=== PATIENT | male | born 1965 | race Asian ===

== ENCOUNTER → 2020-09-14 13:25 | Outpatient (BNVA) | payer OTHER, SELFPAY | PROVIDERS: PCP Nurse Practitioner Family; Referring Provider Nurse Practitioner Family; Visit Provider Physician Assistant | DX: M65.332 Trigger finger, left middle finger (principal); M65.342 Trigger finger, left ring finger | CPT/HCPCS: 20550; 20600; 99213; J1020 ==

== ENCOUNTER 2021-04-13 15:02 | Outpatient (REF) | payer OTHER, SELFPAY ==
--- NOTE | ~2021-04-13 | XR_ITS ---
EXAMINATION: XR KNEE, RIGHT CLINICAL INFORMATION: Right knee pain COMPARISON: None TECHNIQUE: Four views of the right knee. FINDINGS: There is no evidence of acute fracture or dislocation of the right knee. There is prominent chondrocalcinosis. There is a right knee effusion. No significant joint space narrowing is present. There is minor spurring undersurface of the patella. XR/XR knee RT 4V IMPRESSION: No acute fracture or dislocation of the right knee. Prominent chondrocalcinosis with knee effusion. No significant joint space narrowing appreciated.
== END 2021-04-13 15:03 | disposition home or self-care (01) ==
LOC: HO.HMGCX 15:02
PROVIDERS: PCP Nurse Practitioner Family; Visit Provider Hospitalist
DX: M25.561 Pain in right knee (principal)
CPT/HCPCS: 73564

== ENCOUNTER 2023-11-04 09:24 | Outpatient (REF) | payer OTHER, SELFPAY ==
[2023-11-04 11:15] LABS: MANUAL DIFF FLAG NO
[2023-11-04 11:19] LABS: Appearance Urine Clear; Color Urine Yellow; Glucose Urine UA Negative (Negative); Leukocyte Esterase Urine Negative (Negative); Nitrite Urine Negative (Negative); PH 6.5 (5.0-9.0); Specific Gravity - Urine 1.015 (1.005-1.025); Urine Blood Negative (Negative); Urine Ketones Trace mg/dL (Negative); Urine Protein Negative (Neg-Trace)
[2023-11-04 12:03] LABS: Basophils Absolute Auto 0.1 X10*3/uL (0.0-0.2); Basophils Percent Auto 1.1 % (0-2); Eosinophils Absolute Auto 0.2 X10*3/uL (0.0-0.4); Hematocrit 39.6 % (42.0-52.0); Hemoglobin 13.7 g/dl (14.0-18.0); Imm Gran Abs Auto 0.01 X10*3/uL (0.00-0.03); Imm Gran Pct Auto 0.2 % (0.0-0.4); Lymphocytes Absolute Auto 2.1 X10*3/uL (1.2-4.9); Lymphocytes Percent Auto 34.1 % (20-40); Mean Corpuscular HGB Conc 34.6 g/dl (31.0-36.0); Mean Corpuscular Hemoglobin 29.4 pg (27.0-33.0); Mean Platelet Volume 9.8 fL (9.4-12.4); Monocytes Absolute Auto 0.4 X10*3/uL (0.1-1.2); Neutrophils Absolute Auto 3.4 x10*3/uL (2.0-8.3); Neutrophils Percent Auto 54.6 % (45-73); Platelet Count 185 X10*3/uL (160-400); Red Blood Count 4.66 X10*6/uL (4.60-5.80); Red Cell Distribution Width 12.3 % (11.0-16.0); White Blood Count 6.3 X10*3/uL (4.8-10.8)
[2023-11-04 12:08] LABS: Estimated Average Glucose 157 mg/dL; Hemoglobin A1c % 7.1 % (<6.0)
[2023-11-04 12:11] LABS: Alanine Aminotransferase 28 U/L (0-40); Albumin Level 4.5 g/dL (3.5-5.0); Alkaline Phosphatase 60 U/L (39-117); Anion Gap 17 (12-20); Aspartate Amino Transferase 29 U/L (5-37); Bilirubin Total 0.5 mg/dL (0.0-1.0); Blood Urea Nitrogen 14 mg/dL (9-16); Carbon Dioxide 30 mmol/L (22-29); Chloride 97 mmol/L (96-108); Cholesterol 196 mg/dL (<200); Estimated Glomerular Filt Rate > 60; Glucose Fasting 181 mg/dL (60-99); HDL Cholesterol 65 mg/dL (>40); LDL Cholesterol Calculated 100 mg/dL (<100); Potassium 3.9 mmol/L (3.3-5.1); Sodium 140 mmol/L (135-145); TSH reflex Free T4 3.97 uIU/mL (0.32-4.0); Total Protein 7.7 g/dL (6.5-8.0); Triglycerides 158 mg/dL (<150)
[2023-11-04 12:13] LABS: Prostate Specific Antigen 0.21 ng/mL (<0.05-4.0)
[2023-11-04 12:16] LABS: Creatinine Urine 152.35 mg/dL; Microalbum/Creatinine Ratio Ur 30.1 ug/mg cr (<30)
== END 2023-11-04 09:25 | disposition home or self-care (01) ==
LOC: HO.HMGCLDS 09:24
PROVIDERS: PCP Nurse Practitioner Family; Visit Provider Nurse Practitioner Family
DX: E11.9 Type 2 diabetes mellitus without complications (principal); Z12.5 Encounter for screening for malignant neoplasm of prostate
CPT/HCPCS: 36415; 80053; 80061; 81003; 82043; 82570; 83036; 84153; 84443; 85025

== ENCOUNTER 2023-11-07 07:53 | Outpatient (AMB) | payer OTHER, SELFPAY ==
--- NOTE | 2023-11-07 08:02 | A.OFFPC_ITS ---
Vital Signs 11/07/23 08:03 Height 6 ft Weight 231 lb BMI 31.3 BP 110/70 Blood Pressure Location Lt brachial Position Sitting Pulse 48 L Pulse Source Pulse Oximeter Pulse Oximetry (%) 98 Oxygen Delivery Method Room Air Intake Visit Reasons: 6 month follow up after labs are done Allergies penicillin V Allergy (Unknown, Verified 11/07/23 08:04) Unknown Sulfa (Sulfonamide Antibiotics) Allergy (Unknown, Verified 11/07/23 08:04) Unknown sulfamethoxazole [From Bactrim] Allergy (Unknown, Verified 11/07/23 08:04) HIVES trimethoprim [From Bactrim] Allergy (Unknown, Verified 11/07/23 08:04) HIVES flu shot Allergy (Unknown, Uncoded 11/07/23 08:04) he got 'very sick' flu like Sx Medication List - Last Reconciled 11/07/23 by EDEN Guallpa amlodipine 5 mg PO DAILY 90 days canagliflozin (Invokana) 300 mg PO QAM indomethacin 50 mg PO TID linagliptin (Tradjenta) 5 mg PO DAILY lisinopril 40 mg PO DAILY metformin 1,000 mg PO BID pravastatin 80 mg PO DAILY 90 days scopolamine base 1 patch transdermal Q3D PRN Tobacco use date assessed: 05/07/23 HPI 6 month follow up after labs are done HPI Details Pt is a diabetic, on an BART and a statin. Last A1C was 7.1, microalbumin is up to date. Denies polyuria, polydipsia, does report neuropathy. Pt denies any signs and symptoms of hypoglycemia and does know how to correct it. Pt reports that his blood sugar has been around 130s-140s after eating. Eye exam is up to date. Anemia noted on last labs, will order further labs including FIT testing. Pt denied any dizziness, visual blood in stool, blood in urine [facility] Medical History Anxiety Diabetes Surgical History History of surgical removal of pilonidal cyst History of hand surgery History of shoulder surgery Family History Father No problems noted. Mother No problems noted. Social History Housing: House Alcohol intake: never Patient Tobacco Use Status: Never used Tobacco e-Cigarette/Vaping Use: Never Used Second Hand Smoke Exposure: No service: No Current occupational status: unemployed Cognitive needs: No Hearing needs: No Vision needs: No Questionnaire Thrive Questionnaire Date Thrive assessed: 05/07/23 PUJA-7 AMB Questionnaire PUJA-7 Date PUJA - 7 assessed: 05/07/23 Source: Developed by Drs. Bijan Castro, Shikha Cabrera, Homero Mcnair and colleagues, with an educational ty from [employer]. Review of Systems Const Reports as per HPI Physical exam (Primary Care) Vital Signs: Last Vital Signs Pulse 48 L 11/07/23 08:03 BP 110/70 11/07/23 08:03 Pulse Ox 98 11/07/23 08:03 Oxygen Delivery Method Room Air 11/07/23 08:03 BMI result Body Mass Index 31.3 Tobacco/Smoking Status: Tobacco use Status Tobacco use date assessed 05/07/23 11/07/23 08:03 Patient Tobacco Use Status Never used Tobacco 11/07/23 08:03 e-Cigarette/Vaping Use Never Used 11/07/23 08:03 Thrive Assessment: Date of Thrive Assessment Date Thrive assessed 05/07/23 11/07/23 08:03 Const General: cooperative Nutritional Appearance: obese Orientation/consciousness: patient oriented x3 Neuro General: patient oriented x3 Extrem Other: bilat feet: + sensation with use of monofilament, hammertoes noted bilat, bunion formation to right foot Psych Appearance: grossly normal Mental Status: mental status grossly normal Speech and movement: Normal speech and movement present Affect: normal affect Attitude: cooperative Thought process: Normal thought process present Thought content: Normal thought content present Insight: Good insight present (Psych) Judgement: Good judgement present (Psych) Assessment and Plan Assessment & Plan (1) Anemia: Code(s): D64.9 - Anemia, unspecified Plan: Labs ordered (2) Carpal tunnel syndrome: Code(s): G56.00 - Carpal tunnel syndrome, unspecified upper limb (3) Diabetes: Code(s): E11.9 - Type 2 diabetes mellitus without complications Plan: pt was off his meds for a short time, meds resent, pt will continue to watch his diet Plan The patient agreed to the use of a medical insurance verifier for this encounter. Scribed for EDEN Noguera by Katharina Shore medical insurance verifier, on 11/07/2023 at 08:20 EST. Orders: Orders IRON PROFILE Today D64.9 - Anemia, unspecified FITS Today D64.9 - Anemia, unspecified Complete Blood Count Auto Diff Today D64.9 - Anemia, unspecified Ferritin Today D64.9 - Anemia, unspecified Referrals Orthopedics Referral G56.00 - Carpal tunnel syndrome, unspecified upper limb Medications: Refilled canagliflozin (Invokana) 300 mg PO QAM 90 tabs 1RF linagliptin (Tradjenta) 5 mg PO DAILY 90 tabs 1RF Coding Level of Care Code Est Pt Level 3 (68635) Diagnoses Anemia D64.9 Carpal tunnel syndrome G56.00 Diabetes E11.9
[2023-11-07 08:03] VITALS: BP 110/70; PULSE 48; O2SAT 98; BMI 31.3
== END 2023-11-07 08:37 | disposition home or self-care (01) ==
PROVIDERS: PCP Nurse Practitioner Family; Visit Provider Nurse Practitioner Family
DX: D64.9 Anemia, unspecified (principal); G56.00 Carpal tunnel syndrome, unspecified upper limb; E11.9 Type 2 diabetes mellitus without complications
CPT/HCPCS: 99213

== ENCOUNTER 2024-01-06 13:23 | Outpatient (AMB) | payer OTHER, SELFPAY ==
[2024-01-06 13:38] VITALS: BMI 31.3
--- NOTE | 2024-01-06 13:38 | A.OFFVIS_ITS ---
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 patient states he is having numbness and tingling that is constant. EMG done. Patient last seen with Tiny jones who injected left ring and middle trigger finger in 09/2020 with no improvement. States his finger continues to trigger. Patient would like to discuss surgical intervention for CTR and trigger release. 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 He was last seen in the office on 09/2020 where he was given a left ring and middle finger injection on without benefits. He states he has constant numbness and tingling in his left hand which is aggravated at night. He wears a night brace for his hand without significant relief. He has a history of type 2 diabetes. His HbA1c is 7.1 currently. [facility] Medical History Anxiety Diabetes Surgical History History of surgical removal of pilonidal cyst History of hand surgery History of shoulder surgery Family History Father No problems noted. Mother No problems noted. Social History Housing: House Alcohol intake: never Patient Tobacco Use Status: Never used Tobacco e-Cigarette/Vaping Use: Never Used Second Hand Smoke Exposure: No service: No Current occupational status: unemployed Cognitive needs: No Hearing needs: No Vision needs: No Review of Systems Const All systems reviewed & are unremarkable except as noted in HPI and below Physical Exam Vital Signs: BMI result Body Mass Index 31.3 Const General: cooperative, healthy appearing, comfortable, no acute distress, well developed and alert Orientation/consciousness: patient oriented x3 HEENT Head: Yes normal to inspection, Yes normocephalic and Yes atraumatic Eyes General: appearance normal, both eyes and all related structures Resp Effort & Inspection: normal respiratory effort and able to speak in complete sentences Cardio Rate: regular rate Peripheral pulses: Peripheral pulses 2+ throughout GI Palpation (GI): Soft to palpation Skin Lesions: no lesions Rashes: no rashes Neuro General: patient oriented x3 Extrem Other: Left wrist: Normal to inspection. Tenderness over the carpal canal. Numbness and tingling over the median nerve distribution of the right hand. Able to make a full fist and fully extend all fingers. Positive Tinel's. Results Reviewed Results Reviewed: EMG 2020: Moderate to severe bilat CTS Assessment & Plan Assessment & Plan (1) Carpal tunnel syndrome on left: Code(s): G56.02 - Carpal tunnel syndrome, left upper limb Plan We discussed options which include conservative vs operative treatment. Since the patient has been symptomatic for several months and it is impacting their daily life, the decision was made to undergo right carpal tunnel release. We discussed risk, benefits and alternatives. Risk including but not limited to infection, weakness, stiffness, ongoing numbness or tingling. I also explained t he risk of diabetes with wound close and ongoing numbness. The patient does understand all this and would like to proceed with left carpal tunnel release with Dr. Mcgill. They will be booked accordingly. Patient Instructions: Scribed for Ibrahima Jonas PA-C, by Sameer Riggs medical education specialist, on 01/06/2024 at 1:30 PM EST. Ibrahima Rice PA-C, have personally reviewed and agree with the information entered by the scribe. Coding Level of Care Code New Pt Level 4 (44417) Diagnoses Carpal tunnel syndrome on left G56.02
== END 2024-01-06 13:59 | disposition home or self-care (01) ==
PROVIDERS: PCP Nurse Practitioner Family; Visit Provider Physician Assistant
DX: G56.02 Carpal tunnel syndrome, left upper limb (principal)
CPT/HCPCS: 99204

== ENCOUNTER → 2024-01-06 13:23 | Outpatient (BNVA) | payer OTHER, SELFPAY | PROVIDERS: PCP Nurse Practitioner Family; Visit Provider Physician Assistant | DX: G56.02 Carpal tunnel syndrome, left upper limb (principal) | CPT/HCPCS: 99202 ==

== ENCOUNTER 2024-03-23 11:05 | Day surgery (SDC) | payer OTHER, SELFPAY ==
[2024-03-23 11:35] VITALS: BP 162/100; PULSE 61; RESP 20; TEMP 36.5; O2SAT 95; BMI 32.8
--- NOTE | 2024-03-23 12:09 | MHC.SHP ---
Pre-Procedural Eval Section A - 24 Hr Update-Section A only Date of Service: 03/23/24 The patient is an INPATIENT: No Changes since office visit: No Cold of Flu in the past 2 weeks, No New Medical Problems, No Changes in Medication and No Patient answered all questions The patient has been examined within 24 hours of the surgical procedure. The History & Physical has been completed within 30 days and I have reviewed it.: Yes Section B - Complete if H&P > 30 days Chief Complaint: Carpal tunnel syndrome, left upper limb Allergies: Allergies Allergy/AdvReac Type Severity Reaction Status Date / Time penicillin V Allergy Unknown Unknown Verified 01/06/24 13:44 Sulfa (Sulfonamide Allergy Unknown Unknown Verified 01/06/24 13:44 Antibiotics) sulfamethoxazole Allergy Unknown HIVES Verified 01/06/24 13:44 [From Bactrim] trimethoprim [From Bactrim] Allergy Unknown HIVES Verified 01/06/24 13:44 flu shot Allergy Unknown he got Uncoded 01/06/24 13:44 'very sick' flu like Sx Exam Exam Comment: Left carpal tunnel syndrome Plan Diagnosis/Plan: Unchanged I have reviewed the history and physical and performed a pertinent physical examination on my patient. No changes have occurred unless specified. Time Spent With Patient Time: Total time managing care of this patient today ____ minutes.
--- NOTE | 2024-03-23 13:48 | W.PM.OPN ---
Operative Note Operative Note Date of Service: 03/23/24 Narrative: Preop diagnosis: 1. Left Carpal tunnel syndrome Postop diagnosis: same Procedure: 1. Left Carpal tunnel release Surgeon: Janice Mcgill MD Anesthesia: local block using 1% lidocaine with epinephrine Findings: Thickened transverse carpal ligament. EBL: Less than 5 mL Specimens: None Complications: None Disposition: Brought to recovery room in stable condition Plan: Follow-up for 10-14 days for wound check and suture removal Indications: The patient is 58 years old, with left carpal tunnel syndrome that has been unresponsive to nonoperative management. The risks and benefits of operative treatment including but not limited to risk of damage to blood vessels, nerves, tendons, infection, persistent pain, persistent symptoms, or possible need for additional surgery were discussed with the patient and the patient wishes to proceed with surgery. Procedure: Once consent was obtained a local block was performed using a combination of 1% lidocaine with epinephrine. The patient was then brought back to the operating suite and placed on the operative table in supine position. The left upper extremity was prepped and draped in a standard surgical fashion. Once assured that we had a good block, a 2.0 cm longitudinal incision was made centered over the carpal tunnel. The incision was made through the skin to the subcutaneous tissues using a #15 blade. Dissection was made down to the level of the transverse carpal ligament with care being taken to protect the palmar cutaneous nerve. Once the transverse carpal ligament was clearly visualized, a longitudinal incision was made in the transverse carpal ligament 1st using a #15 blade, then using tenotomy scissors under direct visualization. Care was taken to look for and protect the motor branch of the median nerve when seen in this area. Once satisfied with our carpal tunnel release the wound was copiously irrigated with normal saline and hemostasis was obtained with a brief period of local pressure. The skin edges were reapproximated with some 5.0 nylon suture material and a sterile dressing was applied. The patient appears to have tolerated the procedure well and with no complications. All digits were well vascularized at the conclusion of the case.
--- NOTE | 2024-03-23 14:49 | HO.INF ---
POST OP VITAL SIGNS 186/89, 79, 18, 98% RA.
== END 2024-03-23 14:41 | disposition home or self-care (01) ==
PROVIDERS: PCP Nurse Practitioner Family; Visit Provider Orthopaedic Surgery
PROC: (CPT 64721; principal; 2024-03-23 14:10)
DX: G56.02 Carpal tunnel syndrome, left upper limb (principal); R20.0 Anesthesia of skin; R20.2 Paresthesia of skin; F41.9 Anxiety disorder, unspecified; E11.9 Type 2 diabetes mellitus without complications; Z88.0 Allergy status to penicillin; Z88.2 Allergy status to sulfonamides; Z98.890 Other specified postprocedural states; Z56.0 Unemployment, unspecified
CPT/HCPCS: 64721; J0171

== ENCOUNTER → 2024-03-23 11:05 | Outpatient (BNV) | payer OTHER, SELFPAY | PROVIDERS: PCP Nurse Practitioner Family; Visit Provider Orthopaedic Surgery | DX: G56.02 Carpal tunnel syndrome, left upper limb (principal) | CPT/HCPCS: 64721 ==

== ENCOUNTER 2024-04-07 09:43 | Outpatient (AMB) | payer OTHER, SELFPAY ==
[2024-04-07 09:46] VITALS: BMI 32.8
--- NOTE | 2024-04-07 09:46 | A.OFFVIS_ITS ---
Vital Signs 04/07/24 09:46 Height 5 ft 9 in Weight 222 lb BMI 32.8 Intake Visit Reasons: PO LT CTR 03/23/24 AR Intake Note: Tomasz 58 yr old male presents today for his PO visit for his left CTR 03/23/[address] Mcgill. States his CTS have improved and is doing well. Sutures removed and steri strips applied. Allergies penicillin V Allergy (Unknown, Verified 04/07/24 09:54) Unknown Sulfa (Sulfonamide Antibiotics) Allergy (Unknown, Verified 04/07/24 09:54) Unknown sulfamethoxazole [From Bactrim] Allergy (Unknown, Verified 04/07/24 09:54) HIVES trimethoprim [From Bactrim] Allergy (Unknown, Verified 04/07/24 09:54) HIVES flu shot Allergy (Unknown, Uncoded 04/07/24 09:54) he got 'very sick' flu like Sx HPI HPI PO LT CTR 03/23/24 AR: Details: Tomasz is a 58 year old left hand dominant Diabetic man who presents S/P left carpal tunnel release, DOS: 03/23/24. He says he is doing well, he continues to have numbness in the median nerve distribution but says he had good resolution of his nighttime symptoms. He says he has numbness in the right median nerve distribution. Symptoms intermittent, but daily, worse at night. He is a Diabetic, his most recent HgA1c was 7.1%. [facility] Medical History Anxiety Diabetes Surgical History History of surgical removal of pilonidal cyst History of hand surgery History of shoulder surgery Family History Father No problems noted. Mother No problems noted. Social History Housing: House Alcohol intake: never Comment: counts correct Patient Tobacco Use Status: Never used Tobacco e-Cigarette/Vaping Use: Never Used Second Hand Smoke Exposure: No service: No Current occupational status: unemployed Cognitive needs: No Hearing needs: No Vision needs: No Review of Systems Const All systems reviewed & are unremarkable except as noted in HPI and below Physical Exam Vital Signs: BMI result Body Mass Index 32.8 Const General: no acute distress and alert Orientation/consciousness: patient oriented x3 Neuro General: patient oriented x3 Extrem Other: The patient was alert oriented and in no acute distress The incision is healing well with no erythema drainage or evidence of infection. Sutures removed and Steri-Strips applied He can make a fist and extend all his digits He continues to have dense numbness in the left median nerve distribution. He does report significant improvement in nighttime symptoms. Cap refill is brisk In regards to the right hand: Normal sensation to the tips of all digits today in clinic No thenar or intrinsic wasting Good APB muscle belly firing & good finger cross He denies having trouble with numbness and tingling in the small fingers. 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 Dr. Garcia 07/20/20 Psych Appearance: grossly normal Affect: normal affect Attitude: cooperative Assessment & Plan Assessment & Plan (1) Carpal tunnel syndrome on left: Code(s): G56.02 - Carpal tunnel syndrome, left upper limb Category: Medical (2) Carpal tunnel syndrome of right wrist: Code(s): G56.01 - Carpal tunnel syndrome, right upper limb Category: Medical (3) Diabetes: Code(s): E11.9 - Type 2 diabetes mellitus without complications Category: Medical (4) Cubital tunnel syndrome on right: Code(s): G56.21 - Lesion of ulnar nerve, right upper limb Category: Medical (5) Cubital tunnel syndrome on left: Code(s): G56.22 - Lesion of ulnar nerve, left upper limb Category: Medical Plan Assessment & Plan: 1. Left carpal tunnel syndrome, S/P release DOS: 03/23/24 Pre-operatively with dense numbness Still with dense numbness but good resolution of his nighttime symptoms The patient appears to be doing well post-operatively I educated him about the post-operative course I explained that it may take up to 9 months post-operatively for his sensation to improve I discussed activity modifications, he is to lift nothing heavier than a cellphone for the next two weeks He will perform gentle ROM exercises at home He should avoid any underwater activities for the next 5 days He should gently massage about the incision site to reduce the risk of hypersensitivity 2. Right carpal tunnel syndrome, moderate-severe Symptoms intermittent, but daily, worse at night I educated her about this condition I discussed operative and non-operative treatment options The patient would like to proceed with surgery The risks and benefits of operative treatment were discussed with the patient and the patient wishes to proceed with surgery. These risks include, but are not limited to risk of damage to blood vessels, nerves, tendons, infection, recurrence, incomplete relief of preoperative symptoms, persistent pain, possible need for further surgery and the risks associated with regional blocks and anesthesia. The plan is to take the patient to the operating room sometime in the next few weeks for the following procedures: 1. Right carpal tunnel release, under local All of the preoperative paperwork including the consent was reviewed today. All the patient's questions were answered. The patient understands that they will be contacted by our operations scheduler soon to schedule this procedure He denies blood thinners, asthma, heart, lung, kidney issues He is a Diabetic, his most recent HgA1c was 7.1% 3. Bilateral cubital tunnel syndrome No complaints today We will manage this conservatively Scribed for Janice Mcgill MD by Isidro Contreras, medical assisting program director, on 04/07/24 at 9:50 AM, EST. Coding Level of Care Code Est Pt Level 4 (34141) Diagnoses Carpal tunnel syndrome on left G56.02 Carpal tunnel syndrome of right wrist G56.01 Diabetes E11.9 Cubital tunnel syndrome on right G56.21 Cubital tunnel syndrome on left G56.22
== END 2024-04-07 09:54 | disposition home or self-care (01) ==
PROVIDERS: PCP Nurse Practitioner Family; Visit Provider Orthopaedic Surgery
DX: G56.03 Carpal tunnel syndrome, bilateral upper limbs (principal); E11.9 Type 2 diabetes mellitus without complications; G56.23 Lesion of ulnar nerve, bilateral upper limbs
CPT/HCPCS: 99214

== ENCOUNTER → 2024-04-07 09:43 | Outpatient (BNVA) | payer OTHER, SELFPAY | PROVIDERS: PCP Nurse Practitioner Family; Visit Provider Orthopaedic Surgery | DX: Z48.811 Encounter for surgical aftercare following surgery on the nervous system (principal); G56.01 Carpal tunnel syndrome, right upper limb; G56.23 Lesion of ulnar nerve, bilateral upper limbs; E11.9 Type 2 diabetes mellitus without complications | CPT/HCPCS: 99212 ==

== ENCOUNTER 2024-05-18 09:52 | Outpatient (AMB) | payer OTHER, SELFPAY ==
--- NOTE | 2024-05-18 10:03 | MHC.PC.OV ---
Vital Signs 05/18/24 10:05 05/18/24 11:01 Height 5 ft 9 in Weight 213 lb BMI 31.5 BP 140/90 H 130/84 Blood Pressure Location Lt brachial Position Sitting Pulse 64 Pulse Source Pulse Oximeter Pulse Oximetry (%) 98 Oxygen Delivery Method Room Air Intake Visit Reasons: Diabetes f/u Intake Note: Patient here for diabetes f/u. Allergies penicillin V Allergy (Unknown, Verified 05/18/24 10:05) Unknown Sulfa (Sulfonamide Antibiotics) Allergy (Unknown, Verified 05/18/24 10:05) Unknown sulfamethoxazole [From Bactrim] Allergy (Unknown, Verified 05/18/24 10:05) HIVES trimethoprim [From Bactrim] Allergy (Unknown, Verified 05/18/24 10:05) HIVES flu shot Allergy (Unknown, Uncoded 05/18/24 10:05) he got 'very sick' flu like Sx Tobacco use date assessed: 05/18/24 Dental Screening Dental Screen Date: 05/18/24 Did you have a dental visit in the last 12 months?: Yes Did you have a dental problem in the last 6 months where you did not have access to dental care?: No Was dental information given to patient?: Patient has dentist HPI Diabetes f/u HPI Details Pt is a diabetic, on an BART and a statin. A1C in office today is 6.9. Microalbumin is up to date. Denies polyuria and polydipsia, does report neuropathy. Pt denies any signs and symptoms of hypoglycemia and does know how to correct it. Will start gabapentin for neuropathy. Currently, he is working on is diet. Pt has an eye doctor. NOTE: left carpel tunnel around March (2023), still ongoing neuropathy to left hand. Refuses pneumonia vaccines. [facility] Medical History Anxiety Diabetes Surgical History History of carpal tunnel surgery of left wrist History of surgical removal of pilonidal cyst History of hand surgery History of shoulder surgery Family History Father No problems noted. Mother No problems noted. Social History Housing: House Alcohol intake: never Comment: counts correct Patient Tobacco Use Status: Never used Tobacco e-Cigarette/Vaping Use: Never Used Second Hand Smoke Exposure: No service: No Current occupational status: unemployed Cognitive needs: No Hearing needs: No Vision needs: No Questionnaire PHQ-9 Over the last 2 weeks, how often have you been bothered by any of the following problems? 1. Little interest or pleasure in doing things: not at all 2. Feeling down, depressed, or hopeless: not at all 3. Trouble falling or staying asleep, or sleeping too much: not at all 4. Feeling tired or having little energy: not at all 5. Poor appetite or overeating: not at all 6. Feeling bad about yourself - or that you are a failure or have let yourself or your family down: not at all 7. Trouble concentrating on things, such as reading the newspaper or watching television: not at all 8. Moving or speaking so slowly that other people could have noticed. Or the opposite - being so fidgety or restless that you have been moving around a lot more than usual: not at all 9. Thoughts that you would be better off or of hurting yourself in some way: not at all Total score: 0 Depression Screening Interpretation: Negative Depression Screening Done: Yes 69674 - PHQ-9 Billing: Yes Source: Developed by Drs. Bijan Castro, Shikha Cabrera, Homero Mcnair and colleagues, with an educational ty from [employer]. Thrive Questionnaire Date Thrive assessed: 05/18/24 What is your living situation today?: I choose not to answer this question Within the past 12 months, did the food you bought not last and you didn't have the money to get more?: I choose not to answer this question Within the past 12 months, did you worry whether your food would run out before you got money to buy more?: I choose not to answer this question Do you have trouble paying for medicines?: I choose not to answer this question Do you have trouble getting transportation to medical appointments?: I choose not to answer this question Do you have trouble paying your heating and electricity bill?: I choose not to answer this question Do you have trouble taking care of your child, family member or friend?: I choose not to answer this question Do you have trouble with day-to-day activities such as bathing, preparing meals, shopping, managing finances, etc.?: I choose not to answer this question Are you currently unemployed and looking for a job?: I choose not to answer this question Are you interested in more education?: I choose not to answer this question Currently or been in a relationship where the following occur: I choose not to answer this question THRIVE Score: 0 AUDIT C Alcohol Use Questionnaire (AUDIT-C) 1. How often do you have a drink containing alcohol?: 2-4 times a month 2. How many drinks containing alcohol do you have on a typical day when you are drinking?: 1 or 2 3. How often do you have six or more drinks on one occasion?: Never Total Score: 2 Score Reviewed/Action Taken: No PUJA-7 AMB Questionnaire PUJA-7 Date PUJA - 7 assessed: 05/18/24 Source: Developed by Drs. Bijan Castro, Shikha Cabrera, Homero Mcnair and colleagues, with an educational ty from [employer]. PUJA-7 Assessment Billing PUJA-7 Assessment Tool: pt declined-do not bill Review of Systems Const Reports as per HPI Physical exam (Primary Care) Vital Signs: Last Vital Signs Pulse 64 05/18/24 10:05 BP 130/84 05/18/24 11:01 Pulse Ox 98 05/18/24 10:05 Oxygen Delivery Method Room Air 05/18/24 10:05 BMI result Body Mass Index 31.5 Tobacco/Smoking Status: Tobacco use Status Tobacco use date assessed 05/18/24 05/18/24 10:09 Patient Tobacco Use Status Never used Tobacco 05/18/24 10:04 e-Cigarette/Vaping Use Never Used 05/18/24 10:04 PHQ-9: PHQ-9 Score PHQ-9: Total score 0 05/18/24 10:35 Depression Screening Interpretation: Negative Thrive Assessment: Date of Thrive Assessment Date Thrive assessed 05/18/24 05/18/24 10:13 Currently or been in a relationship where the following occur: I choose not to answer this question Const General: cooperative Orientation/consciousness: patient oriented x3 Resp Effort & Inspection: normal respiratory effort Auscultation: clear to auscultation bilaterally Cardio Rate: regular rate Rhythm: regular rhythm Heart sounds: S1 normal heart sound present and S2 normal heart sound present Neuro General: patient oriented x3 Extrem Other: bilat feet: lack of sensation to toes 2-5, hammertoes noted, otherwise positive sensation, bunions noted bilat Psych Appearance: grossly normal Mental Status: mental status grossly normal Speech and movement: Normal speech and movement present Affect: normal affect Attitude: cooperative Thought process: Normal thought process present Thought content: Normal thought content present Insight: Good insight present (Psych) Judgement: Good judgement present (Psych) Results AMB Hemoglobin A1c AMB Hemoglobin A1c 6.9 % Last Edit by ANAMARIA Mulligan on 05/18/24 10:24 Results Reviewed Results Reviewed: Laboratory Last Values Hgb A1c (Clinic) 6.9 % (4.0-6.0) H 05/18/24 10:22 Assessment and Plan Assessment & Plan (1) Diabetes: Code(s): E11.9 - Type 2 diabetes mellitus without complications Plan: Labs ordered (2) Neuropathy: Code(s): G62.9 - Polyneuropathy, unspecified Plan: starting low dose gabapentin at night, pt can go up to 200mg daily. Plan The patient agreed to the use of a ophthalmic medical technologist for this encounter. Scribed for EDEN Noguera by Katharina Shore ophthalmic medical technologist, on 05/18/2024 at 10:30 EST. Orders: Orders AMB Hemoglobin A1c Today Z13.9 - Encounter for screening, unspecified Complete Blood Count Auto Diff Today E11.9 - Type 2 diabetes mellitus without complications Comprehensive [place]. Panel Fast Today E11.9 - Type 2 diabetes mellitus without complications TSH reflex Free T4 Today E11.9 - Type 2 diabetes mellitus without complications UA CC w/rflx Micro + Cult Today E11.9 - Type 2 diabetes mellitus without complications Lipid Panel Today E11.9 - Type 2 diabetes mellitus without complications Medications: New gabapentin 100 mg PO BEDTIME 30 caps 2RF 30 days Coding Level of Care Code Est Pt Level 3 (40548) Diagnoses Diabetes E11.9 Neuropathy G62.9
[2024-05-18 10:05] VITALS: BP 140/90; PULSE 64; O2SAT 98; BMI 31.5
[2024-05-18 11:01] VITALS: BP 130/84
== END 2024-05-18 10:57 | disposition home or self-care (01) ==
PROVIDERS: PCP Nurse Practitioner Family; Visit Provider Nurse Practitioner Family
DX: E11.42 Type 2 diabetes mellitus with diabetic polyneuropathy (principal); G62.9 Polyneuropathy, unspecified
CPT/HCPCS: 83036; 99213

== ENCOUNTER 2024-11-12 08:11 | Outpatient (AMB) | payer OTHER, SELFPAY ==
[2024-11-12 08:14] VITALS: BP 142/80; PULSE 66; O2SAT 97; BMI 34.8
--- NOTE | 2024-11-12 08:14 | MHC.PC.OV ---
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: No Accompanied by: Self / Same As Patient Allergies penicillin V Allergy (Unknown, Verified 11/12/24 08:16) Unknown Sulfa (Sulfonamide Antibiotics) Allergy (Unknown, Verified 11/12/24 08:16) Unknown sulfamethoxazole [From Bactrim] Allergy (Unknown, Verified 11/12/24 08:16) HIVES trimethoprim [From Bactrim] Allergy (Unknown, Verified 11/12/24 08:16) HIVES flu shot Allergy (Unknown, Uncoded 05/18/24 10:05) he got 'very sick' flu like Sx Medication List - Last Reconciled 11/12/24 by Shaka Alvarez [facility]- amlodipine 5 mg PO DAILY 90 days canagliflozin (Invokana) 300 mg PO QAM gabapentin 200 mg (2 x 100 mg) PO BEDTIME 30 days indomethacin 50 mg PO TID lisinopril 40 mg PO DAILY metformin 1,000 mg PO BID pravastatin 80 mg PO DAILY 90 days scopolamine base 1 patch transdermal Q3D PRN tirzepatide (Mounjaro) 2.5 mg (0.5 mL) subcut QWEEK Tobacco use date assessed: 05/18/24 Dental Screening Dental Screen Date: 05/18/24 HPI blood sugar f/u HPI Details Chief Complaint Peripheral neuropathy in feet History of Present Illness The patient is a 58-year-old male presenting with management needs for diabetes and associated peripheral neuropathy. He reports experiencing significant numbness and tingling in his feet, which he describes as big time, indicating pronounced severity. The neuropathy has been progressive and bothersome. He also reports undergoing surgery for carpal tunnel syndrome, which was advanced, and post-operative recovery did not restore sensation as hoped. Additionally, the patient mentioned a heart murmur previously diagnosed, for which an echocardiogram has not been conducted recently. He reports bunions affecting his right foot and has symptoms consistent with cubital tunnel syndrome, describing numbness and tingling in the elbows particularly when leaning. His diabetes is currently managed with medications including Invokana and metformin, and he expresses interest in initiating Mounjaro for further management. A1c is quite elevated at 8.9, i will bring it down . Social History Health Maintenance - Eye exam is up to date. - Declined pneumonia and flu vaccines. - Discussed the importance of hydration and maintaining blood glucose stability. -denies any Hx of pancreatitis Review of Systems - General: Reports feeling shaky when not eating due to low blood sugar. - Neurologic: Reports numbness and tingling in feet and fingers. - Musculoskeletal: Denies smoking but uses marijuana occasionally. -no CP, SOB, N/V, fevers/chills Physical Exam General: Cooperative, healthy appearing, comfortable, no acute distress and well developed Orientation: Patient oriented x3 Limitations: No limitations Head: Normal to inspection Ears: Hearing grossly normal bilaterally Nose: Normal external nose present Face and sinus: Normal facial exam Eyes: Appearance normal, both eyes and all related structures Neck: Normal visual inspection and Yes full ROM Respiratory: Normal respiratory effort and able to speak in complete sentences. Clear to auscultation bilaterally Cardiovascular: Regular rate and rhythm. Normal S1 and S2. Murmur noted GI: Normal to inspection. Soft to palpation and nontender Skin: No rashes or lesions noted Neuro: Patient oriented x3. Numbness and tingling in feet, especially right foot. Carpal and cubital tunnel syndrome noted Extremities: Normal to inspection. Right bunion noted, missing skin on toes due to rubbing. Full sensation in left foot, reduced sensation in right foot toes with use of monofilament Results Plan - Diabetes Mellitus Type 2: Initiated a prescription for Mounjaro, pending insurance coverage. - Peripheral Neuropathy: Continue current diabetes management to address neuropathy symptoms. - Heart Murmur: Schedule for an echocardiogram at [facility]. - Carpal and Cubital Tunnel Syndrome: Advise on techniques to alleviate symptoms, such as wrapping a towel around elbows during sleep. - Bunion on Right Foot: Monitor for worsening symptoms or any ensuing complications. Patient was informed and verbally consented to the use of an ambient scribe for clinic note documentation during this visit. Discussion Notes Upon discussion, I recommended initiating Mounjaro for diabetes management, emphasizing the potential initial gastrointestinal upset as the body adjusts to delayed gastric emptying. Given the previous carpal tunnel surgery, I clarified the possibility of cubital tunnel syndrome as a differential and advised strategies to mitigate symptoms, particularly nocturnal positioning of the arms. I reassured the patient regarding the heart murmur and planned an echocardiogram to monitor the condition. The patient was in agreement with the suggested treatment plan and understood the need for follow-up in four months to assess the effectiveness and tolerance of introduced therapies. Patient Instructions - Start Mounjaro as directed and monitor for gastrointestinal symptoms. - Return for a follow-up appointment in four months. - Maintain good hydration and stable blood glucose levels to manage neuropathy. - Schedule an echocardiogram at [facility]. - Use supportive measures for cubital tunnel syndrome, such as a towel wrap at night. - Monitor any changes in symptoms related to bunion or peripheral neuropathy. [facility], [facility] Medical History Anxiety Diabetes Surgical History History of carpal tunnel surgery of left wrist History of surgical removal of pilonidal cyst History of hand surgery History of shoulder surgery Family History Father No problems noted. Mother No problems noted. Social History Housing: House Alcohol intake: never Comment: counts correct Patient Tobacco Use Status: Never used Tobacco e-Cigarette/Vaping Use: Never Used Second Hand Smoke Exposure: No service: No Current occupational status: unemployed Cognitive needs: No Hearing needs: No Vision needs: No Questionnaire Thrive Questionnaire Date Thrive assessed: 05/18/24 PUJA-7 AMB Questionnaire PUJA-7 Date PUJA - 7 assessed: 05/18/24 Source: Developed by Drs. Bijan Castro, Shikha Cabrera, Homero Mcnair and colleagues, with an educational ty from [employer]. Physical exam (Primary Care) Vital Signs: Last Vital Signs Pulse 66 11/12/24 08:14 BP 136/76 11/12/24 09:08 Pulse Ox 97 11/12/24 08:14 BMI result Body Mass Index 34.8 Tobacco/Smoking Status: Tobacco use Status Tobacco use date assessed 05/18/24 11/12/24 08:16 Patient Tobacco Use Status Never used Tobacco 11/12/24 08:16 e-Cigarette/Vaping Use Never Used 11/12/24 08:16 Thrive Assessment: Date of Thrive Assessment Date Thrive assessed 05/18/24 11/12/24 08:16 Results AMB Hemoglobin A1c AMB Hemoglobin A1c 8.9 % Last Edit by John Antoine CMA on 11/12/24 08:47 Results Reviewed Results Reviewed: Laboratory Last Values Hgb A1c (Clinic) 8.9 % (4.0-6.0) H 11/12/24 08:47 Coding Level of Care Code Est Pt Level 3 (14547) Diagnoses Diabetes E11.9 Screening PSA (prostate specific antigen) Z12.5 Systolic murmur R01.1 Assessment & Plan Assessment & Plan (1) Diabetes: Code(s): E11.9 - Type 2 diabetes mellitus without complications Category: Medical (2) Screening PSA (prostate specific antigen): Code(s): Z12.5 - Encounter for screening for malignant neoplasm of prostate Category: Medical (3) Systolic murmur: Code(s): R01.1 - Cardiac murmur, unspecified Category: Medical Plan . Orders: Orders Comprehensive [place]. Panel Fast Today E11.9 - Type 2 diabetes mellitus without complications Microalbumin, Random (w Creat) Today E11.9 - Type 2 diabetes mellitus without complications Prostate Specific Antigen Scr Today Z12.5 - Encounter for screening for malignant neoplasm of prostate CA echo transthoracic complete Today R01.1 - Cardiac murmur, unspecified AMB Hemoglobin A1c Today Z13.9 - Encounter for screening, unspecified Complete Blood Count Auto Diff Today E11.9 - Type 2 diabetes mellitus without complications TSH reflex Free T4 Today E11.9 - Type 2 diabetes mellitus without complications UA CC w/rflx Micro + Cult Today E11.9 - Type 2 diabetes mellitus without complications Lipid Panel Today E11.9 - Type 2 diabetes mellitus without complications Medications: New tirzepatide (Mounjaro) for 4 weeks 2.5 mg (0.5 mL) subcut QWEEK 2 mL 0RF
[2024-11-12 09:08] VITALS: BP 136/76
== END 2024-11-12 09:18 | disposition home or self-care (01) ==
PROVIDERS: PCP Nurse Practitioner Family; Visit Provider Nurse Practitioner Family
DX: E11.9 Type 2 diabetes mellitus without complications (principal); Z12.5 Encounter for screening for malignant neoplasm of prostate; R01.1 Cardiac murmur, unspecified; Z13.9 Encounter for screening, unspecified

== ENCOUNTER → 2024-11-12 08:11 | Outpatient (BNVA) | payer OTHER, SELFPAY | PROVIDERS: PCP Nurse Practitioner Family; Visit Provider Nurse Practitioner Family | DX: E11.9 Type 2 diabetes mellitus without complications (principal); R01.1 Cardiac murmur, unspecified | CPT/HCPCS: 83036; 99212 ==

== ENCOUNTER → 2024-11-30 10:54 | Outpatient (REF) | payer OTHER, SELFPAY ==
--- NOTE | 2024-11-30 11:06 | CA_ITS ---
Transthoracic Echocardiogram Patient (Last, First, Middle): Tomasz Lowry J Gender: Male Date of : 1965 Age: 59 Procedure Date: 11/30/2024 Procedure Type: Transthoracic Echocardiogram Location: OP Height: 182. cm Weight: 99.79 kg BSA: 2.21 m2 Heart Rate: 70 bpm BP: 178 / 80 mmHg Staff Field Engineer: BRUNO Morales MD: Shaka Alvarez [facility] Dramatic Director: Javon Arora MD Symptoms: R01.1 - Cardiac murmur, unspecified Study Quality: Fair ECG Rhythm: Sinus Conclusions: - Upper limits of normal aortic size otherwise normal study Findings Left Ventricle Normal left ventricular size, thickness, and systolic function. The visually estimated ejection fraction is between 60-65%. Spectral Doppler is indicative of a normal filling pattern. Right Ventricle Normal right ventricular cavity size. Atria The left atrium is mildly dilated. Interatrial shunt cannot be excluded. The right atrium is normal in size. Aortic Valve Normal aortic valve structure and function. There is no aortic valve stenosis. There is no aortic valve regurgitation. Mitral Valve Normal mitral valve structure and function. There is trace mitral valve regurgitation. There is no mitral valve stenosis. Pulmonic Valve The pulmonic valve was not well visualized. Tricuspid Valve The tricuspid valve was not well visualized. Tricuspid regurgitation envelope is inadequate for calculation of right ventricular systolic pressure. Normal right atrial pressure. Great Vessels All visible segments of the aorta are normal in size. The pulmonary artery was not well visualized. Venous The inferior vena cava is normal in size and collapses greater than 50% with inspiration. Pericardium/Pleural There is no evidence of pericardial effusion. Prior Study Comparison No prior study available for comparison. Measurements 2D Linear Measurements IVSd: 1.02 0.6-0.9/0.6-1.0 cm LVIDd: 5.11 3.9-5.3/4.2-5.9 cm LVIDd Index: 2.31 2.4-3.2/2.2-3.1 cm/m2 LVIDs: 3.16 2.0-3.6 cm LVPWd: 0.87 0.7-1.1 cm LA Diam: 4.10 2.7-3.8/3.0-4.0 cm LAIDs Index: 1.86 1.5-2.3 cm/m2 LV Mass: 217.95 67-162/88-224 g LV Mass Index: 98.62 43-95/49-115 g/m2 LVOT Diam: 2.30 3.0+(-)1.3 cm 2D Systolic Function EF 4C: 64.80 >55% EF 2C: 64.30 >55% EF BiP: 64.60 >55% Mitral Valve MV Pk E: 1.03 MV PK A: 0.86 MV Decel Time: 159.00 E/A: 1.20 E'Lateral: 12.70 E'Medial: 9.03 E/E' Med: 11.40 E/E' Lat: 8.10 PHT: 47.00 MVA PHT: 4.68 Decel [place]: 6.49 Aortic Valve AoV Pk Uriel: 1.72 AoV Mn Uriel: 1.23 AoV VTI: 0.35 AoV Pk Grad: 12.00 Aov Mn Grad: 7.00 LORRAINE Cont.VTI: 3.28 LVOT LVOT Pk Uriel: 1.33 LVOT Mn Uriel: 0.88 LVOT VTI: 0.28 LVOT Pk Grad: 7.00 LVOT Mn Grad: 4.00 LVOT Diam: 2.30 LVOT Area: 4.15 Diastolic Function MV Pk E: 1.03 MV Pk A: 0.86 E/A: 1.20 E'Medial: 9.03 E/E' Med: 11.40 E' Laterial: 12.70 E/E' Lat: 8.10 Right Ventricle TAPSE (mm): 30.10 TVS' Uriel: 15.70 Tricuspid Valve RA Press: 3.00 Great Vessels Aorta Sinus of Valsalva: 3.50 2.0-3.5 cm Ao Asc: 3.50 2.1-3.4 cm Ao Arch: 3.30 Pulmonary Valve PV Pk Uriel: 1.11 Peak PV Grad: 5.00 Updated in Other Vendor System with Status of Final Javon Arora MD electronically signed on 12/01/2024 8:58:08 AM with status of Final
== END ==
LOC: HO.CARD 10:54
PROVIDERS: PCP Nurse Practitioner Family; Visit Provider Nurse Practitioner Family
DX: R01.1 Cardiac murmur, unspecified (principal)
CPT/HCPCS: 93306

== ENCOUNTER → 2024-11-30 11:06 | Outpatient (BNV) | payer OTHER, SELFPAY | PROVIDERS: PCP Nurse Practitioner Family; Visit Provider Internal Medicine Cardiovascular Disease | DX: R01.1 Cardiac murmur, unspecified (principal) | CPT/HCPCS: 93306 ==

== ENCOUNTER 2025-03-15 09:23 | Outpatient (AMB) | payer OTHER, SELFPAY ==
[2025-03-15 09:28] VITALS: BP 138/78; PULSE 67; O2SAT 97; BMI 34.7
--- NOTE | 2025-03-15 09:28 | A.OFFPC_ITS ---
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 Accompanied by: Self / Same As Patient Allergies penicillin V Allergy (Unknown, Verified 03/15/25 10:10) Unknown Sulfa (Sulfonamide Antibiotics) Allergy (Unknown, Verified 03/15/25 10:10) Unknown sulfamethoxazole [From Bactrim] Allergy (Unknown, Verified 03/15/25 10:10) HIVES trimethoprim [From Bactrim] Allergy (Unknown, Verified 03/15/25 10:10) HIVES dulaglutide [From Trulicity] Adverse Reaction (Intermediate, Verified 03/15/25 10:10) Nausea and Vomiting flu shot Allergy (Unknown, Uncoded 03/15/25 10:10) he got 'very sick' flu like Sx Medication List - Last Reconciled 03/15/25 by LIVIA Guallpa- amlodipine 5 mg PO DAILY 90 days dapagliflozin propanediol 10 mg PO QAM 90 days gabapentin 200 mg (2 x 100 mg) PO BEDTIME 30 days indomethacin 50 mg PO TID lancets (OneTouch Delica Plus Lancet) Test blood sugar twice a day lisinopril 40 mg PO DAILY metformin 1,000 mg PO BID OneTouch Verio test strips (blood sugar diagnostic) Test blood sugar twice a day NS pravastatin 80 mg PO DAILY 90 days scopolamine base 1 patch transdermal Q3D PRN Tobacco use date assessed: 03/15/25 Dental Screening Dental Screen Date: 03/15/25 Did you have a dental visit in the last 12 months?: Yes Did you have a dental problem in the last 6 months where you did not have access to dental care?: No Was dental information given to patient?: Patient has dentist HPI -diabetes/insurance ok HPI Details Chief Complaint Patient presents for a follow-up regarding diabetes management. History of Present Illness The patient is a 59-year-old male presenting for a follow-up to evaluate his diabetes management. He has a documented history of diabetes mellitus, currently poorly controlled with a hemoglobin A1c of 9.1. He previously experienced adverse effects from a GLP-1 agonist and therefore ceased its use, currently opting for Farxiga, which he tolerates without issue. Despite adherence to his treatment regimen, he acknowledges lapses in dietary intake contrary to managing his condition effectively. 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 During the consultation, a left carotid bruit was auscultated, which necessitates further vascular evaluation. Social History - Reports dietary indiscretions that may impact diabetes management. Health Maintenance - Encourage the patient to improve dieta ry habits to manage diabetes. - Patient has been advised to schedule a n eye exam. - Plan to repeat hemoglobin A1c in three months for diabetes management assessment. - Monitor for progression of neuropathy symptoms and sensory deficits in the lower extremities. Review of Systems - Neurological: Reports intermittent liane ropathy in the bilateral lower extremities. - Vascular: Reports carotid bruit auscul tated on the left side. - Endocrine: Acknowledges difficulty wit h glycemic control as evidenced by elevated A1c. -denies any cp or sob Physical Exam General: Cooperative, healthy appearing, comfortable, no acute distress and well developed Orientation: Patient oriented x3 Limitations: No limitations Head: Normal to inspection Ears: Hearing grossly normal bilaterally Nose: Normal external nose present Face and sinus: Normal facial exam Eyes: Appearance normal, both eyes and all related structures Neck: Normal visual inspection and Yes full ROM Respiratory: Normal respiratory effort and able to speak in complete sentences. Clear to auscultation bilaterally Cardiovascular: Regular rate and rhythm. Normal S1 and S2. Left carotid bruit noted GI: Normal to inspection. Soft to palpation and nontender Skin: No rashes or lesions noted Neuro: Patient oriented x3. Slight lack of sensation to bilateral lower extremities, though able to feel the monofilament, feet intact Extremities: Normal to inspection. Results - Labs: Hemoglobin A1c level is 9.1. Plan The patient's diabetes management strategy requires consistent blood glucose monitoring and addressing dietary intake concerns (pt refused insulin). Hemoglobin A1c levels are to be reassessed in three months, adjusting treatment protocols as necessary. The diminished sensation in the lower extremities suggests continuous monitoring for progression of neuropathy. The presence of a carotid bruit on the left side necessitates an ultrasound for further evaluation of possible vascular stenosis or atherosclerosis. The patient will independently schedule an eye exam, with anticipatory guidance related to diabetes complications being provided. Discussion Notes I discussed the current state of the patient's diabetes management, recognizing the elevated A1c and its implications on long-term health. The potential benefits and challenges of medication adherence, dietary adjustments, and lifestyle synchronization were emphasized. I reviewed the findings of sensory deficits in the lower extremities and their relevance to neuropathic progression due to diabetes. The discovery of the carotid bruit was disclosed with clarity, and we discussed its possible implications and the need for further assessment through carotid ultrasound. I advised follow-up in three months post- reassessment of A1c and will monitor any emerging vascular or sensory symptoms related to diabetes. Patient Instructions - Work on dietary changes to better renate ge diabetes and monitor blood sugar levels regularly. - Schedule an eye exam to screen for dionicio betic retinopathy. - Return for a follow-up appointment in three months post-reassessment of A1c. - Monitor any changes in sensation in th e feet and report issues. - Plan to have an ultrasound of the whiting tid arteries as discussed. - Be aware of signs of worsening vascula r or neuropathy symptoms and seek advice accordingly. [facility] Medical History Anxiety Diabetes Surgical History History of carpal tunnel surgery of left wrist History of surgical removal of pilonidal cyst History of hand surgery History of shoulder surgery Family History Father No problems noted. Mother No problems noted. Social History Housing: House Alcohol intake: never Comment: counts correct Patient Tobacco Use Status: Never used Tobacco e-Cigarette/Vaping Use: Never Used Second Hand Smoke Exposure: No service: No Current occupational status: unemployed Cognitive needs: No Hearing needs: No Vision needs: No Questionnaire Thrive Questionnaire Date Thrive assessed: 05/18/24 PUJA-7 AMB Questionnaire PUJA-7 Date PUJA - 7 assessed: 05/18/24 Source: Developed by Drs. Bijan Castro, Shikha Cabrera, Homero Mcnair and colleagues, with an educational ty from [employer]. Physical exam (Primary Care) Vital Signs: Last Vital Signs Pulse 67 03/15/25 09:28 BP 138/78 03/15/25 09:28 Pulse Ox 97 03/15/25 09:28 Oxygen Delivery Method Room Air 03/15/25 09:28 BMI result Body Mass Index 34.7 Tobacco/Smoking Status: Tobacco use Status Tobacco use date assessed 03/15/25 03/15/25 09:30 Patient Tobacco Use Status Never used Tobacco 03/15/25 09:30 e-Cigarette/Vaping Use Never Used 03/15/25 09:30 Thrive Assessment: Date of Thrive Assessment Date Thrive assessed 05/18/24 03/15/25 09:30 Coding Level of Care Code Est Pt Level 3 (26434) Diagnoses Carotid stenosis I65.29 Neuropathy G62.9 Diabetes E11.9 Assessment & Plan Assessment & Plan (1) Carotid stenosis: Code(s): I65.29 - Occlusion and stenosis of unspecified carotid artery Category: Medical (2) Neuropathy: Code(s): G62.9 - Polyneuropathy, unspecified Category: Medical (3) Diabetes: Code(s): E11.9 - Type 2 diabetes mellitus without complications Category: Medical Plan encouraged pt to have his labs drawn in the near future Orders: Orders 2 US carotid duplex BI Today I65.29 - Occlusion and stenosis of unspecified carotid artery
== END 2025-03-15 10:03 | disposition home or self-care (01) ==
LOC: HO.HMCC 09:24
PROVIDERS: PCP Nurse Practitioner Family; Visit Provider Nurse Practitioner Family
DX: E11.42 Type 2 diabetes mellitus with diabetic polyneuropathy (principal); I65.29 Occlusion and stenosis of unspecified carotid artery; G62.9 Polyneuropathy, unspecified

== ENCOUNTER → 2025-03-15 09:23 | Outpatient (BNVA) | payer OTHER, SELFPAY | PROVIDERS: PCP Nurse Practitioner Family; Visit Provider Nurse Practitioner Family | DX: I65.29 Occlusion and stenosis of unspecified carotid artery (principal); G62.9 Polyneuropathy, unspecified; E11.9 Type 2 diabetes mellitus without complications | CPT/HCPCS: 99212 ==

== ENCOUNTER → 2025-03-16 13:19 | Outpatient (BNV) | payer OTHER, SELFPAY | PROVIDERS: PCP Nurse Practitioner Family; Visit Provider Nurse Practitioner Family | DX: Z13.9 Encounter for screening, unspecified (principal) | CPT/HCPCS: 83036 ==

== ENCOUNTER 2025-04-15 09:48 | Outpatient (REF) | payer OTHER, SELFPAY ==
--- NOTE | ~2025-04-15 | US_ITS ---
CLINICAL HISTORY: I65.29 - Occlusion and stenosis of unspecified carotid artery US Bilateral Carotid Duplex Comparison: None Findings: Arrhythmia. Bilateral common and internal carotid artery intimal thickening/plaques. Peak systolic velocities: Right CCA: 163 cm/s. Right ICA: 73 cm/s. ICA/CCA ratio: 0.3. Right ECA: Patent. Right vertebral artery flow antegrade. Left CCA: 145 cm/s. Left ICA: 117 cm/s. ICA/CCA ratio: 0.4. Left ECA: Patent. Left vertebral artery flow antegrade. IMPRESSION: Increased bilateral common carotid artery peak systolic velocities may be artifactual or due to less than 69% stenosis. No significant stenosis in the ICAs. Arrhythmia. This document has been electronically signed by: Rox Torres MD on 04/15/2025 12:03:26
== END 2025-04-15 09:49 | disposition home or self-care (01) ==
LOC: HO.HMGCX 09:48
PROVIDERS: PCP Nurse Practitioner Family; Visit Provider Nurse Practitioner Family
DX: I65.23 Occlusion and stenosis of bilateral carotid arteries (principal)
CPT/HCPCS: 93880

== ENCOUNTER → 2025-04-15 09:50 | Outpatient (BNV) | payer OTHER, SELFPAY | PROVIDERS: PCP Nurse Practitioner Family; Visit Provider Radiology Diagnostic Radiology | DX: I65.23 Occlusion and stenosis of bilateral carotid arteries (principal) | CPT/HCPCS: 93880 ==

== ENCOUNTER 2025-05-04 09:11 | Outpatient (AMB) | payer OTHER, SELFPAY ==
--- NOTE | 2025-05-04 09:16 | MHC.OFFVIS ---
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 [employer] Required: No Accompanied by: Self / Same As Patient Allergies penicillin V Allergy (Unknown, Verified 05/04/25 09:20) Unknown Sulfa (Sulfonamide Antibiotics) Allergy (Unknown, Verified 05/04/25 09:20) Unknown sulfamethoxazole [From Bactrim] Allergy (Unknown, Verified 05/04/25 09:20) HIVES trimethoprim [From Bactrim] Allergy (Unknown, Verified 05/04/25 09:20) HIVES dulaglutide [From Trulicity] Adverse Reaction (Intermediate, Verified 05/04/25 09:20) Nausea and Vomiting flu shot Allergy (Unknown, Uncoded 05/04/25 09:20) he got 'very sick' flu like Sx HPI 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 An ultrasound on 04/15/2025 was performed to evaluate the carotid arteries following this finding. The patient has been diagnosed with Type 2 Diabetes Mellitus for five years, controlled with oral hypoglycemic agents, and he self-reports an A1c level below 7 for most of this period. He denies any prior history of smoking and exhibits no symptoms indicative of cerebrovascular insufficiency. He regularly engages in exercise, walking extensive distances without limitation, bolstering a relatively stable physical status. He now presents to us for vascular evaluation. ON LICENSE OF [facility] Medical History Anxiety Diabetes Surgical History History of carpal tunnel surgery of left wrist History of surgical removal of pilonidal cyst History of hand surgery History of shoulder surgery Family History Father No problems noted. Mother No problems noted. Social History Housing: House Alcohol intake: never Comment: counts correct Patient Tobacco Use Status: Never used Tobacco e-Cigarette/Vaping Use: Never Used Second Hand Smoke Exposure: No service: No Current occupational status: unemployed Cognitive needs: No Hearing needs: No Vision needs: No Review of Systems Const All systems reviewed & are unremarkable except as noted in HPI and below Reports no additional complaints ENT Reports Normal hearing present Card Denies chest pain, Denies chest pain at rest, Denies chest pain with activity and Denies pedal edema Resp Denies cough GI Denies abdominal pain Musc Denies abnormal gait, Denies muscle cramps and Denies radiating pain into limb Skin/Breast Denies skin ulcer and Denies wounds Neuro Reports Normal hearing present and Denies abnormal gait Psych Reports no additional complaints Physical Exam Vital Signs: Last Vital Signs BP 142/70 H 05/04/25 09:23 BMI result Body Mass Index 34.7 Const General: cooperative, healthy appearing and comfortable Orientation/consciousness: oriented to person, oriented to place and oriented to time HEENT Head: Yes normal to inspection Neck Neck: Yes normal visual inspection Carotids: no bruits Chest Chest palpation & inspection: normal inspection of the chest Resp Effort & Inspection: normal respiratory effort and able to speak in complete sentences Auscultation: clear to auscultation bilaterally, no crackles, no rales, no rhonchi and no wheezes Cardio Rate: regular rate Rhythm: regular rhythm Heart sounds: S1 normal heart sound present and S2 normal heart sound present Bruits: no carotid bruits Peripheral pulses: Peripheral pulses 2+ throughout GI Inspection: Yes normal to inspection Skin Wounds: no wounds Hair: normal Neuro General: oriented to person, oriented to place and oriented to time Cranial nerves: Yes CN's II-XII intact bilaterally and Yes Normal hearing present Cognition (Neuro): normal cognition Motor exam (neuro): 5/5 motor strength present throughout Extrem Other: venous exam: No significant superficial varicosities or spider telangiectasias, minimal edema General: No clubbing, No cyanosis and No edema Psych Appearance: grossly normal Mental Status: mental status grossly normal Speech and movement: Normal speech and movement present Results Reviewed Results Reviewed: Carotid ultrasound dated 04/15/2025 demonstrates bilateral 0-49% stenosis. There may be slight stenosis of the common carotids but I do believe it is much less than reported by the radiologist's report. Assessment & Plan Assessment & Plan (1) Carotid stenosis: Code(s): I65.29 - Occlusion and stenosis of unspecified carotid artery Category: Medical Qualifiers: Laterality: bilateral Qualified Code(s): I65.23 - Occlusion and stenosis of bilateral carotid arteries Plan: In short patient has minimal carotid disease. We did review risk factors for carotid disease along with pathophysiology of stroke. At the current time I do believe that his carotid status is within normal limits of what is expected for his age. Would not recommend any further studies or follow-up. We did discuss routine risk factor modification and continued management of his diabetes and maintaining an active lifestyle. Once again he will follow up with us on an as-needed basis. Thank you for allowing us to assist in his care. Coding Level of Care Code New Pt Level 4 (38343) Diagnoses Bilateral carotid artery stenosis I65.23 Laterality: bilateral
[2025-05-04 09:17] VITALS: BP 122/70; BMI 34.7
[2025-05-04 09:23] VITALS: BP 142/70
== END 2025-05-04 10:07 | disposition home or self-care (01) ==
LOC: HO.HVS 09:12
PROVIDERS: PCP Nurse Practitioner Family; Visit Provider Surgery Vascular Surgery
DX: I65.23 Occlusion and stenosis of bilateral carotid arteries (principal)
CPT/HCPCS: 99204

== ENCOUNTER → 2025-05-04 09:11 | Outpatient (BNVA) | payer OTHER, SELFPAY | PROVIDERS: PCP Nurse Practitioner Family; Visit Provider Surgery Vascular Surgery | DX: I65.23 Occlusion and stenosis of bilateral carotid arteries (principal) | CPT/HCPCS: 99202 ==

== ENCOUNTER 2025-10-07 08:09 | Outpatient (AMB) | payer OTHER, SELFPAY ==
[2025-10-07 08:19] VITALS: BP 102/50; PULSE 68; RESP 16; TEMP 37.1; O2SAT 97; BMI 34.8
--- NOTE | 2025-10-07 08:19 | MHC.PC.OV ---
Vital Signs 10/07/25 08:19 Height 5 ft 9 in Weight 236 lb BMI 34.8 BP 102/50 L Blood Pressure Location Rt brachial Position Sitting Respiration 16 Pulse 68 Pulse Source Pulse Oximeter Temp 98.8 F Temp Source Oral Pulse Oximetry (%) 97 Oxygen Delivery Method Room Air Intake Visit Reasons: Follow up Manager Surgical Required: No Accompanied by: Self / Same As Patient Allergies penicillin V Allergy (Unknown, Verified 10/07/25 08:20) Unknown Sulfa (Sulfonamide Antibiotics) Allergy (Unknown, Verified 10/07/25 08:20) Unknown sulfamethoxazole (From Bactrim) Allergy (Unknown, Verified 10/07/25 08:20) HIVES trimethoprim (From Bactrim) Allergy (Unknown, Verified 10/07/25 08:20) HIVES dulaglutide (From Trulicity) Adverse Reaction (Intermediate, Verified 10/07/25 08:20) Nausea and Vomiting flu shot Allergy (Unknown, Uncoded 10/07/25 08:20) he got 'very sick' flu like Sx Medication List - Last Reconciled 10/07/25 by LIVIA Guallpa- amlodipine 5 mg PO DAILY 90 days gabapentin 200 mg (2 x 100 mg) PO BEDTIME 30 days glipizide ER 10 mg PO DAILY 90 days indomethacin 50 mg PO TID lancets (FiiilingTouch Delica Plus Lancet) Test blood sugar twice a day lisinopril 40 mg PO DAILY metformin 1,000 mg PO BID OneTouch Verio test strips (blood sugar diagnostic) Test blood sugar twice a day NS pravastatin 80 mg PO DAILY 90 days scopolamine base 1 patch transdermal Q3D PRN Tobacco use date assessed: 10/07/25 Dental Screening Dental Screen Date: 10/07/25 Did you have a dental visit in the last 12 months?: Yes Did you have a dental problem in the last 6 months where you did not have access to dental care?: No Was dental information given to patient?: Patient has dentist HPI Follow up HPI Details Chief Complaint The patient presents for a follow-up visit for management of his diabetes. History of Present Illness The patient is a 59 year old male presenting with a diabetes follow-up. His A1c is 10.1. He was previously on an SGLT-2 inhibitor which he stopped due to rashes and not feeling well, and he also experienced significant side effects from a GLP-1 agonist, which made him feel very sick. The patient also has severe neuropathy in his lower extremities. He reports that his eye exam is up to date. Note: no dizziness reported (low BP), pt knows s/s of hypotention and knows to call me with any symptoms Social History - Functional Status: The patient discussed applying for disability, which is supported due to his severe neuropathy. Health Maintenance - The patient declined any vaccinations. - The patient was encouraged to get fasting labs in the near future. - The patient reports his eye exam is up to date. Review of Systems - General: Reports feeling unwell and experiencing major side effects from previous medications (SGLT-2 inhibitor and GLP-1 agonist). - Integumentary: Reports rashes caused by a previous SGLT-2 inhibitor. - Neurological: Reports severe neuropathy in the lower extremities. Physical Exam General: Cooperative, healthy appearing, comfortable, no acute distress and well developed Orientation: Patient oriented x3 Limitations: No limitations Head: Normal to inspection Ears: Hearing grossly normal bilaterally Nose: Normal external nose present Face and sinus: Normal facial exam Eyes: Appearance normal, both eyes and all related structures Neck: Normal visual inspection and Yes full ROM Respiratory: Normal respiratory effort and able to speak in complete sentences. Clear to auscultation bilaterally Cardiovascular: Regular rate and rhythm. Normal S1 and S2 GI: Normal to inspection. Soft to palpation and nontender Skin: Rashes noted Neuro: Severe neuropathy to lower extremities, no sensation with the use of monofilament Extremities: Hammertoes present, feet intact otherwise Results - Labs: A1c is 10.1. Plan 1. Type 2 Diabetes Mellitus The patient's A1c is uncontrolled at 10.1. He has a history of intolerance to an SGLT-2 inhibitor, which caused rashes, and a GLP-1 agonist, which made him feel very ill. He prefers to avoid starting insulin at this time. Glipizide will be initiated, and he will continue to focus on his diet. A follow-up is scheduled in three months to reassess and discuss the potential use of insulin. He was encouraged to get fasting labs. He reports understanding the s/s of hypoglycemia and how to correct it 2. Diabetic Polyneuropathy The patient has severe polyneuropathy in his lower extremities with loss of sensation on monofilament testing. The dosage of his gabapentin will be increased. 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 Discussion Notes I discussed with the patient that his A1c is unfortunately high at 10.1. We reviewed his past intolerances to an SGLT-2 inhibitor and a GLP-1 agonist. He expressed a desire to avoid starting insulin at this time, so we agreed to initiate glipizide and have him continue working on his diet. I informed him that we will need to re-evaluate in three months and will likely need to reconsider insulin if his control does not improve. For his severe neuropathy, I recommended increasing his gabapentin dosage. I also supported his plan to apply for disability, as I believe he is a suitable candidate given his condition. I encouraged him to complete fasting labs soon. Patient Instructions - Start taking the new medication, glipizide, as prescribed for your diabetes. - Increase your dose of gabapentin as we discussed to help with your nerve pain. - Continue to work on improving your diet to help manage your blood sugar. - Please get fasting blood work done in the near future. - Schedule a follow-up appointment in three months to check your progress and discuss the next steps, which may include starting insulin. [facility] Medical History Anxiety Diabetes Surgical History History of carpal tunnel surgery of left wrist History of surgical removal of pilonidal cyst History of hand surgery History of shoulder surgery Family History Father No problems noted. Mother No problems noted. Social History Housing: House Alcohol intake: never Comment: counts correct Patient Tobacco Use Status: Never used Tobacco e-Cigarette/Vaping Use: Never Used Second Hand Smoke Exposure: No service: No Current occupational status: unemployed Cognitive needs: No Hearing needs: No Vision needs: No Questionnaire PHQ-9 Over the last 2 weeks, how often have you been bothered by any of the following problems? 1. Little interest or pleasure in doing things: not at all 2. Feeling down, depressed, or hopeless: not at all 3. Trouble falling or staying asleep, or sleeping too much: not at all 4. Feeling tired or having little energy: not at all 5. Poor appetite or overeating: not at all 6. Feeling bad about yourself - or that you are a failure or have let yourself or your family down: not at all 7. Trouble concentrating on things, such as reading the newspaper or watching television: not at all 8. Moving or speaking so slowly that other people could have noticed. Or the opposite - being so fidgety or restless that you have been moving around a lot more than usual: not at all 9. Thoughts that you would be better off or of hurting yourself in some way: not at all Total score: 0 Depression Screening Interpretation: Negative Depression Screening Done: Yes 31800 - PHQ-9 Billing: Yes Source: Developed by Drs. Bijan Castro, Shikha Cabrera, Homero Mcnair and colleagues, with an educational ty from [employer]. Thrive Questionnaire Date Thrive assessed: 10/06/25 I am a: Patient What is your living situation today?: I have a steady place to live Within the past 12 months, did the food you bought not last and you didn't have the money to get more?: Sometimes True Within the past 12 months, did you worry whether your food would run out before you got money to buy more?: Sometimes True Do you have trouble paying for medicines?: No Do you have trouble getting transportation to medical appointments?: No Do you have trouble paying your heating and electricity bill?: No Do you have trouble taking care of your child, family member or friend?: No Do you have trouble with day-to-day activities such as bathing, preparing meals, shopping, managing finances, etc.?: No Are you currently unemployed and looking for a job?: Yes Are you interested in more education?: No Currently or been in a relationship where the following occur: I choose not to answer THRIVE Score: 2 AUDIT C Alcohol Use Questionnaire (AUDIT-C) 1. How often do you have a drink containing alcohol?: Monthly or less 2. How many drinks containing alcohol do you have on a typical day when you are drinking?: 1 or 2 3. How often do you have six or more drinks on one occasion?: Never Total Score: 1 PUJA-7 AMB Questionnaire PUJA-7 Date PUJA - 7 assessed: 10/07/25 Feeling nervous, anxious, or on edge: 1 = Several days Not being able to stop or control worryin = Several days Worrying too much about different things: 1 = Several days Trouble relaxin = More than half the days Being so restless that it is hard to sit still: 2 = More than half the days Becoming easily annoyed or irritable: 1 = Several days Feeling afraid as if something awful might happen: 1 = Several days Total PUJA-7 score (0-4 normal; 5-9 mild; 10-14 moderate; 15-21 severe): 9 Source: Developed by Drs. Bijan Castro, Shikha Cabrera, Homero Mcnair and colleagues, with an educational ty from [employer]. PUJA-7 Assessment Billing PUJA-7 Assessment Tool: PUJA-7 Assessment 30056 Physical exam (Primary Care) Vital Signs: Last Vital Signs Temp 98.8 F 10/07/25 08:19 Pulse 68 10/07/25 08:19 Resp 16 10/07/25 08:19 BP 102/50 L 10/07/25 08:19 Pulse Ox 97 10/07/25 08:19 Oxygen Delivery Method Room Air 10/07/25 08:19 BMI result Body Mass Index 34.8 Tobacco/Smoking Status: Tobacco use Status Tobacco use date assessed 10/07/25 10/07/25 08:24 Patient Tobacco Use Status Never used Tobacco 10/07/25 08:24 e-Cigarette/Vaping Use Never Used 10/07/25 08:24 PHQ-9: PHQ-9 Score PHQ-9: Total score 0 10/07/25 08:24 Depression Screening Interpretation: Negative Thrive Assessment: Date of Thrive Assessment Date Thrive assessed 10/06/25 10/07/25 08:24 Currently or been in a relationship where the following occur: I choose not to answer Results AMB Hemoglobin A1c AMB Hemoglobin A1c 10.1 % Last Edit by Danielle Ruffin MA on 10/07/25 08:41 Results Reviewed Results Reviewed: Laboratory Last Values Hgb A1c (Clinic) 10.1 % (4.0-6.0) H 10/07/25 08:36 Coding Level of Care Code Est Pt Level 3 (22856) Diagnoses Diabetes E11.9 Additional Codes PUJA-7 Assessment Billing - PUJA-7 Assessment Tool: PUJA-7 Assessment 19944 ([id number]) PHQ-9 - 60796 - PHQ-9 Billing: Yes ([id number]) Assessment & Plan Assessment & Plan (1) Diabetes: Code(s): E11.9 - Type 2 diabetes mellitus without complications Category: Medical Plan . Orders: Orders AMB Hemoglobin A1c Today E11.9 - Type 2 diabetes mellitus without complications Comprehensive [place]. Panel Fast Today E11.9 - Type 2 diabetes mellitus without complications TSH reflex Free T4 Today E11.9 - Type 2 diabetes mellitus without complications UA CC w/rflx Micro + Cult Today E11.9 - Type 2 diabetes mellitus without complications Lipid Panel Today E11.9 - Type 2 diabetes mellitus without complications Microalbumin, Random (w Creat) Today E11.9 - Type 2 diabetes mellitus without complications Complete Blood Count Auto Diff Today E11.9 - Type 2 diabetes mellitus without complications Medications: New glipizide ER 10 mg PO DAILY 90 tabs 0RF 90 days Changed From gabapentin 200 mg (2 x 100 mg) PO BEDTIME 30 days 60 caps 1RF To gabapentin 200 mg (2 x 100 mg) PO BID 120 caps 1RF 30 days Refilled metformin 1,000 mg PO BID 180 tabs 1RF E11.9 - Type 2 diabetes mellitus without complications
== END 2025-10-07 08:54 | disposition home or self-care (01) ==
LOC: HO.HMCC 08:10
PROVIDERS: PCP Nurse Practitioner Family; Visit Provider Nurse Practitioner Family
DX: E11.9 Type 2 diabetes mellitus without complications (principal)

== ENCOUNTER → 2025-10-07 08:09 | Outpatient (BNVA) | payer OTHER, SELFPAY | PROVIDERS: PCP Nurse Practitioner Family; Visit Provider Nurse Practitioner Family | DX: E11.42 Type 2 diabetes mellitus with diabetic polyneuropathy (principal) | CPT/HCPCS: 83036; 96127; 99212 ==